=== PATIENT | female | born 1975 | race Caucasian/White ===

== ENCOUNTER 2018-08-13 08:59 | Emergency (ER) | payer OTHER ==
[2018-08-13] MEDS ORDERED: IBUPROFEN 600 MG TABLET PO ONE (09:23)
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
[2018-08-13 10:24] VITALS: BP 142/98
== END 2018-08-13 10:26 | disposition home or self-care (01) ==
LOC: ER 08:59
DX: S40.022A Contusion of left upper arm, initial encounter (principal); M79.622 Pain in left upper arm; V49.40XA Driver injured in collision with unspecified motor vehicles in traffic accident, initial encounter
CPT/HCPCS: 99283